=== PATIENT | male | born 1970 | race Caucasian/White ===

== ENCOUNTER 2016-08-31 20:37 | Inpatient (IN) | payer OTHER ==
[~2016-08-31] VITALS: Ht 188 cm; Wt 142.2 kg
[~2016-08-31 20:37] MED LIST: buPROPion **XL** TABLET 150MG (WELLBUTRIN XL) PO SCH
[2016-08-31] MEDS ORDERED: METF1000 PO (20:42)
[2016-08-31] MEDS ORDERED: LISI20TA PO (20:43)
[2016-08-31] MEDS ORDERED: ZYPR5TAB2 PO (20:55)
[2016-08-31] MEDS ORDERED: WELLTAB38 PO (20:56)
[2016-08-31] MEDS ORDERED: PAXI40TA2 PO (20:56)
[2016-08-31] MEDS ORDERED: LIPI10TA PO (20:57)
[2016-08-31] MEDS ORDERED: ATORVASTATIN 10 MG TAB PO SCH (21:00)
[2016-08-31 21:49] LABS: MEAN CORPUSCULAR HGB CONC 33.2 g/dl (32.0-36.5); MEAN CORPUSCULAR VOLUME 93.5 fl (80.0-96.0); RED CELL DISTRIBUTION WIDTH 13.2 % (11.5-14.5); WHITE BLOOD COUNT 7.6 K/mm3 (4.0-10.0)
[2016-08-31 22:11] LABS: METHADONE URINE NEGATIVE (NEGATIVE)
[2016-08-31 22:20] LABS: ALBUMIN 3.8 GM/DL (3.2-5.2); ALBUMIN/GLOBULIN RATIO 1.12 (1.00-1.93); ALKALINE PHOSPHATASE 108 U/L (45-117); ALT/SGPT 46 U/L (12-78); ANION GAP 8 MEQ/L (8-16); AST/SGOT 36 U/L (15-37); BILIRUBIN,DIRECT 0.1 MG/DL (0.0-0.2); BILIRUBIN,TOTAL 0.5 MG/DL (0.2-1.0); BLOOD UREA NITROGEN 19 MG/DL (7-18); CALCIUM LEVEL 9.6 MG/DL (8.5-10.1); CARBON DIOXIDE LEVEL 26 MEQ/L (21-32); CHLORIDE LEVEL 111 MEQ/L (98-107); CREATININE FOR GFR 1.11 MG/DL (0.70-1.30); GLOMERULAR FILTRATION RATE > 60.0 (>60); GLUCOSE, FASTING 158 MG/DL (70-105); POTASSIUM SERUM 3.6 MEQ/L (3.5-5.1); SODIUM LEVEL 145 MEQ/L (136-145); TOTAL PROTEIN 7.2 GM/DL (6.4-8.2)
[2016-08-31] MEDS ORDERED: hydroCHLOROthiazide 12.5 MG CAPSULE PO ONE (23:00)
[2016-08-31] MEDS ORDERED: metFORMIN (GLUCOPHAGE) 1000 MG TABLET PO ONE (23:00)
[2016-08-31] MEDS ORDERED: OLANZapine 5 MG TAB PO ONE (23:00)
[2016-08-31] MEDS ORDERED: LISINOPRIL 20 MG TAB PO ONE (23:00)
[2016-08-31] MEDS ORDERED: PARoxetine 20 MG TAB PO ONE (23:00)
[2016-08-31] MEDS ORDERED: ASPI81TAEC PO (23:18)
[2016-08-31] MEDS ORDERED: LISI10TA2 PO (23:20)
[2016-09-01 02:13] VITALS: BP 140/90
[2016-09-01] MEDS ORDERED: ACETAMINOPHEN TAB 650MG DOSE (2X325MG) PO PRN (02:15)
[2016-09-01] MEDS ORDERED: MAALOX 30 ML SUSP *UDC PO PRN (02:15)
[2016-09-01] MEDS ORDERED: traZODone 50 MG TAB PO PRN (02:15)
[2016-09-01] MEDS ORDERED: MOM 30ML SUSPENSION UDC PO PRN (02:15)
[2016-09-01] MEDS ORDERED: CitaloPRAM (CeleXA) 10 MG TABLET PO SCH (09:00)
[2016-09-01] MEDS ORDERED: PARoxetine 20 MG TAB PO SCH ×2 (09:00→12:00)
[2016-09-01] MEDS: ASPIRIN 81 MG ENTERIC TAB PO SCH (09:01)
--- NOTE | 2016-09-01 10:01 | MHHPE ---
DATE OF ADMISSION: 08/31/2016 DATE OF SERVICE: 09/01/2016 The patient is a 46-year-old male who states "I had a bad day." He changes it to discuss that he has had accumulation of many different stressors on him over the last few years, however. Most recently, he has lost his job. He has lost his car. He has lost his apartment. He will be evicted by August. He will be going to Family Court for child support payments. He states after he got the paperwork from the Court, "Everything hit me." He stated "I am sick of everything." He discussed this with someone who called the police. He states the medicines he has been on for depression and bipolar disease are not working well. He was employed at [employer] for 3 years associated with [employer]. EDUCATIONAL HISTORY: He has one semester of college. He graduated high school. He has three children, ages 28, 18, and 16. Child support difficulties, he is going to be called to court for are due to the 18- and [id number]. He has been twice. Had the one child with the first and these two children, 18 and 16, with his second . He states he was arrested for battery times one in the past. He states at that time, he was manic. ALCOHOL HISTORY: Is negative. DRUG USE HISTORY: Is negative. MEDICAL HISTORY: Is positive for diabetes. NEUROLOGICAL HISTORY: Is negative. SURGICAL HISTORY: He has had a carpectomy in his right wrist, a deviated septum, and appendix removal. His psychiatric care is by Katherine in [facility] and [facility]. His psychiatric medications, he is presently on Paxil and Wellbutrin and state they work so-so. He states he has been diagnosed with bipolar disease for 5 years but states that he thinks he has had it since he was a sophomore in high school. He states it expresses itself mostly as depression. His past medications that he can remember are [place], Depakote, Lamictal, Tegretol, and Effexor. He has never been on Celexa or Zoloft. He is not sure of his doses. He denies hallucinations, delusions, obsessions, compulsions, and phobias. Speech is normal. No disturbance of thought processes. No loose associations. No abnormal psychotic thoughts. Judgment and insight are intact. He is fully oriented. Recent and remote memory intact. Attention and concentration are intact. No disturbance of language. He has a full fund of knowledge. Mood is low. Affect is flat. IMPRESSION: Bipolar disorder, depressed type.
[2016-09-01] MEDS: metFORMIN (GLUCOPHAGE) 1000 MG TABLET PO SCH (17:32)
[2016-09-01 18:00] VITALS: BP 122/70
[2016-09-01] MEDS ORDERED: buPROPion **XL** TABLET 150MG (WELLBUTRIN XL) PO SCH (21:00)
[2016-09-01] MEDS: LISINOPRIL 10 MG TAB PO SCH (21:45)
[2016-09-01] MEDS: ATORVASTATIN 10 MG TAB PO SCH (21:45)
[2016-09-01] MEDS: hydroCHLOROthiazide 12.5 MG CAPSULE PO SCH (21:46)
[2016-09-01] MEDS: OLANZapine 5 MG TAB PO SCH (21:46)
[2016-09-01] MEDS: buPROPion **XL** TABLET 150MG (WELLBUTRIN XL) PO SCH (21:46)
[2016-09-02 06:22] VITALS: BP 138/90
[2016-09-02] MEDS: ASPIRIN 81 MG ENTERIC TAB PO SCH (08:54)
[2016-09-02] MEDS: CitaloPRAM (CeleXA) 20 MG TAB PO SCH (08:54)
[2016-09-02] MEDS ORDERED: PARoxetine 10MG TABLET PO SCH (12:00)
--- NOTE | 2016-09-02 12:35 | IPN ---
DATE OF ADMISSION: 08/31/2016 DATE OF SERVICE: 09/02/2016 Patient is a 46-year-old male. I met with him today with the treatment team. We discussed his numerous stressors. Most recently he has supposed to have been in court for failure to pay child support. He has lost his apartment and his car. Patient states his mood is improving with the new medication and he feels well. He repetitively asks about discharge. He is presently on Paxil will be discontinued tomorrow, he has had no side effects of it. He came into the hospital on Zyprexa 5 at bedtime and placed the patient on Celexa 40 mg daily and he is also on Bupropion 150 mg at bedtime. This was also a medication he was admitted on. Speech is normal. No disturbance of thought process. No loose associations. No abnormal or psychotic thoughts. Judgment and insight are fair. He is fully oriented. Recent and remote memory intact. He denies hallucinations, delusions, obsessions, compulsions, and phobias. Attention and concentration is intact. No disturbance of language. Full fund of knowledge. Mood is good. Affect is brighter. Denies suicidal or homicidal ideation.
[2016-09-02] MEDS: metFORMIN (GLUCOPHAGE) 1000 MG TABLET PO SCH (17:19)
[2016-09-02 18:00] VITALS: BP 130/70
[2016-09-02] MEDS: buPROPion **XL** TABLET 150MG (WELLBUTRIN XL) PO SCH (20:12)
[2016-09-02] MEDS: OLANZapine 5 MG TAB PO SCH (20:12)
[2016-09-02 20:13] VITALS: BP 131/66
[2016-09-02] MEDS: hydroCHLOROthiazide 12.5 MG CAPSULE PO SCH (20:13)
[2016-09-02] MEDS: ATORVASTATIN 10 MG TAB PO SCH (20:13)
[2016-09-02] MEDS: LISINOPRIL 10 MG TAB PO SCH (20:13)
[2016-09-03 06:35] VITALS: BP 147/72
[2016-09-03] MEDS ORDERED: HYDR12CA PO (08:51)
[2016-09-03] MEDS ORDERED: CELE20TA PO (08:51)
[2016-09-03] MEDS ORDERED: LISI10TA4 PO (08:51)
[2016-09-03] MEDS ORDERED: BUPR150T3 PO (08:51)
[2016-09-03] MEDS ORDERED: OLAN5TAB PO (08:51)
[2016-09-03] MEDS ORDERED: GLUC1000 PO (08:51)
[2016-09-03] MEDS ORDERED: TRAZO50TA PO (08:55)
--- NOTE | 2016-09-03 09:07 | HPE ---
DATE OF ADMISSION: 08/31/2016 Please refer to psychiatric history and evaluation for further details on this admission. This examination and history is intended for medical issues which may need treatment, followup or consult on this 46-year-old male. PRIMARY CARE PROVIDER: Dr. Singh in [place], [place]. ALLERGIES: No known allergies. SOCIAL HISTORY: He is . He has three children, ages 28, 18 and 16. ETOH occasionally once a month. He will drink a beer. Smokes none. Recreational drug use none. PAST MEDICAL HISTORY: Non-insulin dependent diabetes type 2. Hypercholesterolemia. Anxiety. Depression. Bipolar. PAST SURGICAL HISTORY: Repaired deviated septum. Appendectomy. Removal of kidney stone. Repair fractured right wrist. HOME MEDICATIONS: - aspirin 81 mg by mouth daily - Lipitor 10 mg by mouth daily - bupropion 150 mg by mouth daily at bedtime - lisinopril/hydrochlorothiazide 10/12.5 one by mouth daily at bedtime - metformin 1000 mg by mouth daily with meals - Zyprexa 5 mg by mouth daily at bedtime - Paxil 40 mg by mouth daily LABORATORY STUDIES: WBC 7.6, hemoglobin 13.6 and hematocrit 41. Platelets 249, sodium 145, potassium 3.6, chloride 111, CO2 26, BUN 19, creatinine 1.11, toxicology was negative. Ten systems review was done. Patient has no complaints. Was unremarkable. PHYSICAL EXAMINATION: 46-year-old obese male in no acute distress. Height 74 inches, weight 142.2 kg, BMI 40.3, blood pressure 138/78, pulse 64, respirations 18, temperature 98.8. The patient is alert and oriented times three. Pupils equal and reactive to light. Extraocular movements intact. Cornea and sclera clear. Conjunctiva normal. No facial asymmetry. Pharynx, tongue and gums pink and moist. Tongue is midline. Neck is supple, without lymphadenopathy. No thyromegaly. No goiter. Chest clear to auscultation, without wheeze or retraction. Heart is regular. Abdomen benign. Bowel sounds positive. Genitourinary ()/Rectal: Not done. Extremities show equal strength, full range of motion. No cyanosis, clubbing or edema. Feet inspected, no sores. Peripheral pulses equal and palpable bilaterally. Skin is warm and dry. Gait steady. IMPRESSION/PLAN: Psychiatric plan per psychiatry. History of non-insulin dependent diabetes type 2. Consistent carbohydrate diet. Fingerstick blood sugars twice daily. Continue metformin. Hypertension, stable. Hypercholesterolemia, continue Lipitor. Continued followup with outpatient primary care provider. No acute medical issues.
[2016-09-03] MEDS: ASPIRIN 81 MG ENTERIC TAB PO SCH (09:13)
[2016-09-03] MEDS: CitaloPRAM (CeleXA) 20 MG TAB PO SCH (09:13)
--- NOTE | 2016-09-03 15:44 | MHDS ---
DATE OF ADMISSION: 08/31/2016 DATE OF DISCHARGE: 09/03/2016 This is a 46-year-old male who states "I had a bad day." He had accumulation of many different stressors causing this admission. Most recently, he had lost his job, he has lost his car, he has lost his apartment and will be evicted by late August 2016. He will be going to family court for child support payments, but due to this admission, he may have missed that court date. He states when he received the paperwork from family court, "everything hit me." He states "I am sick of everything." He discussed this stress with someone who called the police and he was sent to the emergency room (ER). He states the medicines that he has been on for depression and bipolar disease are not working well. He has been employed at [employer] for three years. EDUCATIONAL HISTORY: He has one semester of college. He graduated high school. He has three children, ages 28, 18 and 16. Child support difficulties are for the 18 and 16 year olds. He has been twice. He had one child with his first and these two children ages 18 and 16 are with his second . LEGAL HISTORY: He states he was arrested for battery in the past. He states that at that time he was manic. ALCOHOL HISTORY: Negative. DRUG USE HISTORY: Negative. MEDICAL HISTORY: Positive for diabetes. NEUROLOGICAL HISTORY: Negative. SURGICAL HISTORY: He had a carpectomy in his right wrist, a deviated septum, and appendix removal. PSYCHIATRIC CARE HISTORY: Provided by Katherine in [facility] and [facility]. He comes to the unit on Paxil and Wellbutrin and is not presently happy with the way they are working. He states he was diagnosed with bipolar disease five years ago but states he thinks he has had it since he was a sophomore in high school. His past use of medications are lithium, Depakote, Lamictal, Tegretol and Effexor. He has never been on Celexa or Zoloft. He is not sure of his doses. Examination by Bernice Patel NP. He states he has no known allergies. PAST MEDICAL HISTORY: Has included [id number] diabetes, hypercholesterolemia, anxiety, depression, and bipolar disease. PAST SURGICAL HISTORY: As mentioned except for removal of a kidney stone. LABORATORY STUDIES: Indicated a WBC of 7.6, hemoglobin 13.6, hematocrit 41. Toxicology screen was negative. REVIEW OF SYSTEMS: Completed. RECOMMENDATIONS: Fingerstick blood sugars twice a day, continued metformin. Continue Lipitor for hypercholesterolemia. Hypertension was stable. I met with him on 09/02/2016 with the staff. We discussed his numerous stressors and he states his mood was improving after I changed his medication and stated he felt well and was requesting discharge. I placed him on Celexa 40 mg daily and continued his bupropion. DISCHARGE MEDICATIONS: - bupropion 150 mg at night - citalopram 40 mg daily - hydrochlorothiazide 12.5 mg at bedtime - lisinopril 10 mg at bedtime - metformin 1000 mg daily - olanzapine 5 mg at bedtime - trazodone 50 mg at bedtime for insomnia as needed DISCHARGE DIAGNOSES: 1. Major depression. 2. Rule out bipolar disorder. FOLLOWUP: As per discharge planning. DISCHARGE MENTAL STATUS EXAMINATION: Speech was normal. No disturbance of thought process. No loose associations. No abnormal or psychotic thoughts. Insight and judgment were good. Fully oriented. Recent and remote memory intact. Attention and concentration intact. Language: No disturbance of language. Fund of knowledge was full. Mood was good. Affect was bright.
== END 2016-09-03 13:35 | disposition home or self-care (01) | DRG 754 ==
LOC: M ED 22:38 → M ED INP 22:39 → M PSY 09-01 01:25
PROVIDERS: ADMIT Psychiatry & Neurology Child & Adolescent Psychiatry; ATTEND Psychiatry & Neurology Child & Adolescent Psychiatry
DX: F32.9 Major depressive disorder, single episode, unspecified (principal); E11.9 Type 2 diabetes mellitus without complications; F31.9 Bipolar disorder, unspecified; Z79.899 Other long term (current) drug therapy; E78.00 Pure hypercholesterolemia, unspecified; F41.9 Anxiety disorder, unspecified; Z79.82 Long term (current) use of aspirin

== ENCOUNTER → 2016-10-19 | Outpatient (CLI) | payer OTHER ==
[~2016-10-19] MED LIST changes: +ASPI81TAEC PO; +BUPR150T3 PO; +CELE20TA PO; +GLUC1000 PO; +HYDR12CA PO; +LIPI10TA PO; +LISI10TA2 PO; +LISI10TA4 PO; +LISI20TA PO; +METF1000 PO; +OLAN5TAB PO; +PAXI40TA2 PO; +TRAZO50TA PO; +WELLTAB38 PO; +ZYPR5TAB2 PO; -buPROPion **XL** TABLET 150MG (WELLBUTRIN XL) PO SCH
--- NOTE | 2016-10-19 12:31 | REP ---
REASON: Neck and left arm pain. COMPARISON: None. The craniovertebral junction is within normal limits. There is no abnormal signal seen in the imaged portion of the spinal cord. There is loss of disc space height and disc hydrational signal at every level. Modic type 1 endplate changes are seen posteriorly at C3-4. At the C2-3 level there is no disc herniation, foraminal narrowing, or central canal stenosis. The C3-4 level there is a large broad based annular bulge which flattens and straightens the anterior surface of the spinal cord. This is seen in conjunction with degenerative facet and uncovertebral joint changes bilaterally, left greater than right causing mild right and moderate left foraminal narrowing. There is moderate central canal stenosis. There is no evidence of an acute disc extrusion. At the C4-5 level there is an asymmetric broad based annular bulge seen in conjunction with hypertrophic degenerative facet and uncovertebral joint changes bilaterally. The ventral subarachnoid space is narrowed by the discogenic change and there is mild bilateral foraminal narrowing. There is no acute disc extrusion. The anterior surface of the spinal cord is not deformed by the discogenic change. At the C5-6 level there is a large asymmetric broad based annular bulge seen in conjunction with hypertrophic degenerative facet and uncovertebral joint changes bilaterally, but left greater than right. The ventral subarachnoid space is significantly narrowed and the anterior surface of the spinal cord is flattened and straightened particularly left half. The degenerative facet and uncovertebral joint changes cause mild right and moderate to severe left foraminal narrowing. There is no evidence of an acute disc extrusion. At the C6-7 level there is a large asymmetric broad based annular bulge seen in conjunction with hypertrophic degenerative facet and uncovertebral joint changes bilaterally. These factors in concert are causing moderate to severe right foraminal narrowing and mild to moderate left foraminal narrowing. The ventral subarachnoid space is restricted by the chronic discogenic change and there is a mild flattening and straightening of the anterior surface of the spinal cord. There is no acute disc extrusion. At the C7-T1 level there is no disc herniation, foraminal narrowing or central canal stenosis. IMPRESSION: Multilevel chronic discogenic and degenerative changes as described above. Signed by Cy Strong DO 10/19/2016 03:58 P
--- NOTE | 2016-10-26 12:16 | REP ---
Left brachial plexus MRI study without contrast: History: Pain in the left arm. Paresthesias. Brachial plexus disorder. Spondylolysis. Technique: Sagittal and axial imaging planes are utilized. T1 and T2-weighted scans were obtained in the usual fashion with and without fat saturation. MRI findings: Cortical and medullary bone signal intensity are normal. Vertebral body heights are preserved. In the cervical spine, there is straightening of the normal cervical lordosis. There is disc space narrowing at C3-4 and C5-6 and discogenic spurring is seen at C5-6, C6-7 and C7-T1 anteriorly. There is evidence of bilateral uncovertebral spurring and disc bulging at C6-7 and left-sided uncovertebral spurring and disc bulging at C5-6 producing neural foraminal narrowing at these levels. No brachial plexus mass or compression is seen. There is no evidence of axillary, supraclavicular mass or adenopathy. No abnormal fluid collection is seen. Impression: Negative brachial plexus MRI study on the left. Signed by Momo Li MD 10/26/2016 01:19 P
== END ==
LOC: M RAD 08:00
PROVIDERS: ATTEND Psychiatry & Neurology Neurology
DX: M79.602 Pain in left arm (principal); R20.2 Paresthesia of skin; G54.0 Brachial plexus disorders; M43.02 Spondylolysis, cervical region; M54.2 Cervicalgia

== ENCOUNTER → 2017-04-15 | Outpatient (CLI) | payer BC ==
[~2017-04-15] MED LIST changes: -METF1000 PO; +METF10004 PO; +PAXI40TA10 PO; -PAXI40TA2 PO
--- NOTE | 2017-04-15 15:03 | REP ---
Cervical spine seven views: CT of the cervical spine: Comparison is the cervical spine MRI dated 10/19/2016. Vertebral body heights and alignment are normal. There is disc space narrowing and osteophytic formation at C 03/04, 05/06 and 06/07, compatible with multilevel degenerative disc disease. Prevertebral soft tissues are normal. The facets are normally aligned. There is foraminal encroachment on the right at C 06/07 from osteophytic formation, likely secondary to the degenerative disc disease. There is no listhesis. There is no listhesis on the lateral views in flexion or extension. The odontoid view is unremarkable. Impression: Multilevel degenerative disc disease. Focal foraminal encroachment on the right at C 06/07. Signed by Ezra Broussard MD 04/15/2017 02:55 P
--- NOTE | 2017-04-15 16:21 | REP ---
Right shoulder series: Three views. History: Right neck and shoulder pain. Findings: The right glenohumeral and acromioclavicular joints are normally aligned. Periarticular soft tissues are unremarkable. No erosive changes seen. Impression: Negative radiographs of the right shoulder. Signed by Momo Li MD 04/16/2017 08:14 A
== END ==
LOC: M WUC 14:24
PROVIDERS: ATTEND Physician Assistant
DX: M50.30 Other cervical disc degeneration, unspecified cervical region (principal)

== ENCOUNTER → 2018-10-14 | Outpatient (REF) | payer OTHER ==
[~2018-10-14] MED LIST changes: +ARIP1TAB6 PO; +ASPI81TA85 PO; +BUSP30TA PO; +CELE10TA PO; +CELE40TA PO; +HYDR1CAP25; +HYDR1CAP25 PO; +METF-414 PO; +METO1TAB87 PO; +TRAZ-252 PO; +TRAZ1TAB10 PO; -TRAZO50TA PO
== END ==
LOC: M SMT 12:58
PROVIDERS: ATTEND Urology
DX: N20.0 Calculus of kidney (principal)

== ENCOUNTER 2018-10-20 06:54 | Day surgery (SDC) | payer OTHER ==
[~2018-10-20] VITALS: Ht 188 cm; Wt 119.7 kg
[~2018-10-20 06:54] MED LIST changes: +CIPROFLOXACIN 400 MG in APPROPRIATE DILUENT 1 EA IV ONE; +LIDOCAINE 1% MDV 20ML VIAL SQ PRN; +LR 1,000 ML IV ONE
--- NOTE | 2018-10-20 08:32 | REP ---
Supine abdomen two views: There are no comparison studies. There is a 16 mm a mottled calcification projected over the lower pole of the left kidney. No right renal calculi are identified. There are calcifications in the pelvis, phleboliths versus ureteral. The bowel gas pattern is normal. Skeletal structures are unremarkable. Impression: Left renal calculus as described. Pelvic calculi as described. Electronically Signed by Ezra Broussard MD 10/20/2018 08:24 A
[2018-10-20] MEDS ORDERED: PROPOFOL 200 MG/20 ML VIAL As Ordered ONE ×2 (08:54→10:10)
[2018-10-20] MEDS ORDERED: MIDAZOLAM INJ 2 MG/2 ML VIAL (J2250) As Ordered ONE (08:54)
[2018-10-20] MEDS ORDERED: fentaNYL 100 MCG/2 ML INJECTION (J3010) As Ordered ONE (08:54)
[2018-10-20] MEDS ORDERED: LIDOCAINE 2% INJ 100 MG/5 ML SDV (FOR ANES.) As Ordered ONE (08:54)
[2018-10-20 11:00] VITALS: BP 137/72
[2018-10-20] MEDS ORDERED: PERCOCET 5MG/325MG TAB PO PRN ×2 (11:00)
--- NOTE | 2018-10-21 10:31 | RO ---
DATE OF PROCEDURE: 10/20/2018 PREPROCEDURE DIAGNOSIS: Left kidney stone. POSTPROCEDURE DIAGNOSIS: Left kidney stone. PROCEDURE: Left extracorporal shock lithotripsy. SURGEON: Dr. José Miguel Almazan. INTERVENTION TEACHER: None. ANESTHESIA: Monitored anesthesia care (MAC). OPERATIVE INDICATIONS: This is a 48-year-old male who was found to have a approximately 1.5 cm left kidney stone. He was brought to the operating room today for the above listed procedure. DESCRIPTION OF PROCEDURE: The patient was brought to the operating room and MAC anesthesia was administered. Prophylactic antibiotics were infused. He was then placed in the supine position in preparation for left-sided extracorporal shock lithotripsy. Fluoroscopy utilized to monitor stone position and fragmentation of the procedure. Shockwaves were then delivered to the left- sided of the kidney stone ungated. There were no arrhythmias. The stone did appear to fragment well. After 2500 shocks the procedure was then concluded. The patient was the awakened from anesthesia and transferred to the recovery room in stable condition. ESTIMATED BLOOD LOSS: 0 mL. COMPLICATIONS: None. SPECIMENS: None. PLAN: The patient will followup in the clinic in a few weeks with imaging prior to assess for original stone burden. KELBY
== END 2018-10-20 11:08 | disposition home or self-care (01) ==
LOC: M SDC 06:54
PROVIDERS: ATTEND Urology
DX: N20.0 Calculus of kidney (principal); I10 Essential (primary) hypertension; E11.9 Type 2 diabetes mellitus without complications; G47.30 Sleep apnea, unspecified; Z79.82 Long term (current) use of aspirin; Z79.899 Other long term (current) drug therapy; F41.9 Anxiety disorder, unspecified; F32.9 Major depressive disorder, single episode, unspecified
CPT/HCPCS: 50590; 74018; J0744; J2250; J3010

== ENCOUNTER → 2018-11-10 | Outpatient (CLI) | payer OTHER ==
[~2018-11-10] MED LIST changes: -CIPROFLOXACIN 400 MG in APPROPRIATE DILUENT 1 EA IV ONE; -LIDOCAINE 1% MDV 20ML VIAL SQ PRN; -LR 1,000 ML IV ONE
--- NOTE | 2018-11-11 01:10 | REP ---
Clinical: Renal calculus. Technique: Two supine views of the abdomen and pelvis. Comparison: 10/20/2018. Findings: Evaluation is severely limited by overlying bowel gas pattern. No definite intrarenal calculus is appreciated and the previously. And of the previously suspected left renal stones are not definitively identified. Bowel gas pattern is nonspecific. Skeletal structures are intact. Impression: Limited examination. Previously noted left renal calculi not definitively identified on current exam. Electronically Signed by Kian Connors MD 11/11/2018 01:02 A
[2018-11-16 14:07] LABS: CA Oxalate Dihy 15 % (.); Ca Ox Monohydrate 78 % (.)
== END ==
LOC: M SMT 09:12
PROVIDERS: ATTEND Nurse Practitioner Family
DX: N20.0 Calculus of kidney (principal)

== ENCOUNTER → 2022-04-21 | Outpatient (REF) | payer OTHER ==
[~2022-04-21] MED LIST changes: +ASPI-569 PO; -ASPI81TA85 PO; +ASPI81TA86 PO; -ASPI81TAEC PO; +BUPR150T12 PO; -BUPR150T3 PO; -LISI10TA2 PO; +LISI10TA22 PO; +LISI10TA24 PO; -LISI10TA4 PO; -LISI20TA PO; +LISI20TA35 PO; +OLAN1TAB16 PO; -OLAN5TAB PO; -PAXI40TA10 PO; +PAXI40TA12 PO
== END ==
LOC: M SMT 15:12
PROVIDERS: ATTEND Urology
DX: N50.9 Disorder of male genital organs, unspecified (principal); L72.0 Epidermal cyst